=== PATIENT | male | born 1965 | race Caucasian/White ===

== ENCOUNTER 2017-05-14 19:36 | Emergency (ER) | payer BC, OTHER ==
[~2017-05-14] VITALS: Ht 182.9 cm; Wt 89.5 kg
[2017-05-14 19:41] VITALS: Ht 182.9 cm; Wt 89.5 kg
[2017-05-14 22:40] VITALS: BP 128/93; PULSE 78; RESP 11; TEMP 98.7
--- NOTE | 2017-05-14 22:43 | ERA ---
ER Documentation Chief Complaint Date/Time DATE: 05/14/17 TIME: 22:42 Chief Complaint right flank pain x 1 week HPI The patient is a 51-year-old male, presenting to the ER because of intermittent right flank pain for the last 4-5 days, has similar symptoms previously from kidney stones, denies hematuria, fever, chills, neck pain, chest pain, dyspnea, diarrhea, constipation. He does not smoke nor drink Past medical history: History of kidney stone, hypertension, BPH, bipolar Past surgical history: Gastric bypass, back surgery, appendectomy ROS All systems reviewed and are negative except as per history of present illness. Medications Home Meds Active Scripts Oxycodone HCl/Acetaminophen (Percocet 5-325 mg Tablet) 1 Each Tablet, 1 EACH PO Q6, #7 TAB Prov:PERRY SHEA MD 05/15/17 Ciprofloxacin Hcl* (Ciprofloxacin Hcl*) 500 Mg Tablet, 500 MG PO BID for 10 Days , TAB Prov:PERRY SHEA MD 05/15/17 Reported Medications Fluvoxamine Maleate* (Luvox*) 50 Mg Tab, 100 MG PO DAILY, TAB 05/14/17 Lamotrigine* (Lamotrigine*) 200 Mg Tablet, 400 MG PO QHS, TAB TK 2 TABLETS AT BEDTIME 05/14/17 Clonazepam* (Clonazepam*) 1 Mg Tablet, 1 MG PO QHS Y for ANXIETY, TAB TK 1/2 TAB TO 2 TABLETS AT BEDTIME 05/14/17 Phenazopyridine Hcl* (Phenazopyridine Hcl*) 200 Mg Tablet, 200 MG PO TID, TAB 05/14/17 Amphet Jmf-Rhomoh-Y-Amphet (Amphetamine Salts) 20 Mg Tablet, 20 MG PO QHS, TAB 05/14/17 Quetiapine Fumarate* (Quetiapine Fumarate*) 100 Mg Tablet, 100 MG PO HS, TAB TK 3TABLETS AT BEDTIME 05/14/17 Alprazolam* (Alprazolam*) 1 Mg Tablet, 1 MG PO Q8H Y for ANXIETY, TAB TK 1/2 TAB TO 1 TAB NEEDED 05/14/17 Nifedipine* (Nifedipine ER*) 30 Mg Tablet.sa, 30 MG PO DAILY, TAB.SA 05/14/17 Allergies Allergies: Coded Allergies: tamsulosin (Verified Allergy, Unknown, 05/14/17) Physical Exam Vitals Vital Signs Date Time Temp Pulse Resp B/P Pulse Ox O2 Delivery O2 Flow Rate FiO2 05/14/17 22:40 98.7 78 11 128/93 99 Room Air 05/14/17 19:41 98.9 106 20 123/87 100 Physical Exam Const: No acute distress. Head: Atraumatic. Eyes: Normal Conjunctiva. ENT: Normal External Ears, Nose and Mouth. Neck: Full range of motion. No meningismus. Resp: Clear to auscultation bilaterally. Cardio: Regular rate and rhythm. Abd: Soft, non distended, normal bowel sounds,mild right flank tenderness, no right lower quadrant, right upper quadrant, epigastric, CVA tenderness Skin: No petechiae or rashes. Back: No midline or flank tenderness. Ext: No cyanosis, or edema. Neur: Awake and alert. No focal deficit Psych: Normal Mood and Affect. Result Diagram: 05/14/17 2335 05/14/17 2335 Results 24 hrs Laboratory Tests Test 05/14/17 23:35 05/15/17 00:24 White Blood Count 7.710^3/ul Red Blood Count 4.2110^6/ul Hemoglobin 11.8g/dl Hematocrit 38.1% Mean Corpuscular Volume 90.5fl Mean Corpuscular Hemoglobin 28.0pg Mean Corpuscular Hemoglobin Concent 31.0g/dl Red Cell Distribution Width 13.9% Platelet Count 45382^3/UL Mean Platelet Volume 9.3fl Neutrophils % 76.5% Lymphocytes % 14.2% Monocytes % 7.4% Eosinophils % 1.0% Basophils % 0.5% Nucleated Red Blood Cells % 0.0/100WBC Neutrophils # (Manual) 5.910^3/ul Lymphocytes # 1.110^3/ul Monocytes # 0.610^3/ul Eosinophils # 0.110^3/ul Basophils # 0.010^3/ul Nucleated Red Blood Cells # 0.010^3/ul Sodium Level 142mmol/L Potassium Level 3.9mmol/L Chloride Level 100mmol/L Carbon Dioxide Level 27mmol/L Anion Gap 19 Blood Urea Nitrogen 14mg/dl Creatinine 0.95mg/dl Glucose Level 92mg/dl Calcium Level 9.8mg/dl Total Bilirubin 0.3mg/dl Direct Bilirubin 0.00mg/dl Indirect Bilirubin 0.3mg/dl Aspartate Amino Transf (AST/SGOT) 34IU/L Alanine Aminotransferase (ALT/SGPT) 35IU/L Alkaline Phosphatase 105IU/L Total Protein 8.4g/dl Albumin 4.4g/dl Globulin 4.00g/dl Albumin/Globulin Ratio 1.10 Lipase 119U/L Urine Color ANGELA Urine Clarity CLEAR Urine pH 5.0 Urine Specific [place] 1.018 Urine Ketones NEGATIVEmg/dL Urine Nitrite POSITIVEmg/dL Urine Bilirubin NEGATIVEmg/dL Urine Urobilinogen 2+mg/dL Urine Leukocyte Esterase NEGATIVELeu/ul Urine Microscopic RBC 1/HPF Urine Microscopic WBC 2/HPF Urine Hemoglobin NEGATIVEmg/dL Urine Glucose NEGATIVEmg/dL Urine Total Protein NEGATIVEmg/dl Current Medications Medications (Trade) Dose Ordered Sig/Ayad Route PRN Reason Start Time Stop Time Status Last Admin Dose Admin Morphine Sulfate (morphine) 4 mg ONCE STAT IV 05/14/17 22:55 05/14/17 22:59 DC 05/14/17 23:42 Ondansetron HCl 4 mg 4 mg ONCE STAT IV 05/14/17 22:55 05/14/17 22:59 DC 05/14/17 23:42 Sodium Chloride (NS) 1,000 ml @ 1,000 mls/hr Q1H ONCE IV 05/14/17 23:00 05/14/17 23:59 DC 05/14/17 23:42 Ketorolac Tromethamine (Toradol) 30 mg ONCE STAT IV 05/15/17 00:50 05/15/17 01:08 DC 05/15/17 01:01 Promethazine HCl (Phenergan) 50 mg ONCE ONCE [place] 05/15/17 01:00 05/15/17 01:01 Cancel Ciprofloxacin (Cipro) 500 mg ONCE ONCE PO 05/15/17 01:00 05/15/17 01:01 DC 05/15/17 01:22 Promethazine HCl (Phenadoz) 50 mg ONCE ONCE [place] 05/15/17 01:00 05/15/17 01:01 DC Ketorolac Tromethamine (Toradol) 60 mg ONCE STAT IM 05/15/17 01:06 05/15/17 01:09 DC 05/15/17 01:25 Procedures/[facility] MEDICAL MAKING DECISION: The patient is a 51-year-old male, presenting with recurrent right renal colic, acute cystitis. He was treated with morphine 4 mg IV, Toradol 30 mg IV for pain, Zofran 4 mg IV for nausea, 1 L normal saline for clinical dehydration, Phenergan 50 mg suppository for nausea and Cipro p.o. for acute cystitis The differential diagnoses considered include but are not limited to cholelithiasis, cholecystitis, cystitis, pancreatitis, hepatitis, gastritis, peptic ulcer disease, gastric ulcer, appendicitis, diverticulitis, cholangitis, choledocholithiasis, partial small bowel obstruction. Departure Diagnosis: Primary Impression: Renal colic on right side Additional Impressions: UTI (urinary tract infection) Anemia Condition: Good Comments He was discharged with Cipro and 7 tablets of Percocet I discussed the findings with the patient. I advised the patient to follow-up with the primary physician in about 1-2 days, sooner if needed and return if any concern. PERRY SHEA MD May 14, 2017 22:42
[2017-05-14] MEDS ORDERED: morphine 4 MG/ML VIAL IV STA (22:55)
[2017-05-14] MEDS ORDERED: ONDANSETRON 4 MG INJ IV STA (22:55)
[2017-05-14] MEDS ORDERED: SOD CHLORIDE 0.9% 1,000 ML IV ONE (23:00)
[2017-05-14] MEDS ORDERED: NIFE30TA60 PO (23:36)
[2017-05-14] MEDS ORDERED: CLON1TAB3 PO (23:36)
[2017-05-14] MEDS ORDERED: QUET100T32 PO (23:36)
[2017-05-14] MEDS ORDERED: PHEN-616 PO (23:36)
[2017-05-14] MEDS ORDERED: DEXT20TA8 PO (23:36)
[2017-05-14] MEDS ORDERED: LAMO200T PO (23:36)
[2017-05-14] MEDS ORDERED: BLVX50T PO (23:36)
[2017-05-14] MEDS ORDERED: ALPR1TAB7 PO (23:36)
[2017-05-15 00:04] LABS: BASOPHILS % 0.5 % (0.0-2.0); EOSINOPHILS # 0.1 10^3/ul (0.0-0.5); HEMATOCRIT 38.1 % (42.0-52.0); HEMOGLOBIN 11.8 g/dl (14.0-18.0); LYMPHOCYTES # 1.1 10^3/ul (0.8-2.9); LYMPHOCYTES % 14.2 % (15.0-51.0); MEAN CORPUSCULAR VOLUME 90.5 fl (82.0-101.0); MEAN PLATELET VOLUME 9.3 fl (7.4-10.4); MONOCYTE # 0.6 10^3/ul (0.3-0.9); MONOCYTES % 7.4 % (0.0-11.0); NEUTROPHILS % 76.5 % (39.0-77.0); PLATELET COUNT 308 10^3/UL (140-415); RED BLOOD COUNT 4.21 10^6/ul (4.70-6.10); RED CELL DISTRIBUTION WIDTH 13.9 % (11.5-14.5); WHITE BLOOD COUNT 7.7 10^3/ul (4.8-10.8)
[2017-05-15 00:24] LABS: ALBUMIN 4.4 g/dl (3.3-4.9); ALBUMIN/GLOBULIN RATIO 1.1; BILIRUBIN,INDIRECT 0.3 mg/dl (0-1.1); BILIRUBIN,TOTAL 0.3 mg/dl (0.2-1.3); CALCIUM 9.8 mg/dl (8.4-10.2); CREATININE 0.95 mg/dl (0.61-1.24); POTASSIUM 3.9 mmol/L (3.5-5.1); TOTAL PROTEIN 8.4 g/dl (6.1-8.1)
[2017-05-15] MEDS ORDERED: KETOROLAC 30 MG INJ IV STA (00:50)
[2017-05-15 00:51] LABS: ADD UMIC YES; UR ASCORBIC ACID 20 mg/dL (NEGATIVE); UR BILIRUBIN (Dip) NEGATIVE (NEGATIVE); UR BLOOD (Dip) NEGATIVE (NEGATIVE); UR CLARITY CLEAR (CLEAR); UR COLOR AMBER (YELLOW); UR GLUCOSE (Dip) NEGATIVE (NEGATIVE); UR KETONES (Dip) NEGATIVE (NEGATIVE); UR LEUKOCYTE ESTERASE (Dip) NEGATIVE Leu/ul (NEGATIVE); UR NITRITE (Dip) POSITIVE (NEGATIVE); UR RBC 1 /HPF (0-5); UR SPECIFIC GRAVITY (Dip) 1.018 (1.003-1.030); UR TOTAL PROTEIN (Dip) NEGATIVE (NEGATIVE); UR UROBILINOGEN (Dip) 2+ mg/dL (NEGATIVE)
[2017-05-15] MEDS ORDERED: PROMETHAZINE 50 MG SUPP PR ONE (01:00)
[2017-05-15] MEDS ORDERED: CIPROFLOXACIN 500 MG TAB PO ONE (01:00)
[2017-05-15] MEDS ORDERED: PROMETHAZINE 25 MG SUPP PR ONE (01:00)
[2017-05-15] MEDS ORDERED: KETOROLAC 60 MG INJ IM STA (01:06)
[2017-05-15] MEDS ORDERED: CIPR500T4 PO (01:45)
[2017-05-15] MEDS ORDERED: OXYC-279 PO (02:01)
== END 2017-05-15 08:31 | disposition home or self-care (01) ==
LOC: E/R 19:36
DX: N23 Unspecified renal colic (principal); N39.0 Urinary tract infection, site not specified; D64.9 Anemia, unspecified; I10 Essential (primary) hypertension
CPT/HCPCS: 80053; 81001; 83690; 85025; 87086; 96372; 96374; 96375; 99284; J1885; J2270; J2405; J7030